=== PATIENT | male | born 1990 | race Caucasian/White ===

== ENCOUNTER 2017-06-30 18:56 | Emergency (ER) | payer OTHER ==
[~2017-06-30] VITALS: Ht 177.8 cm; Wt 149.5 kg
[2017-06-30 19:01] VITALS: Ht 177.8 cm; Wt 149.5 kg
[2017-06-30] MEDS ORDERED: KETOROLAC 30 MG INJ IM STA (21:20)
[2017-06-30] MEDS ORDERED: IBUP-1542 PO (21:21)
[2017-06-30] MEDS ORDERED: DEXAMETHASONE 10 MG/ML 1 ML INJ IM ONE (21:30)
--- NOTE | 2017-06-30 21:56 | ERD ---
ER Documentation Chief Complaint Date/Time DATE: 06/30/17 TIME: 21:54 Chief Complaint non traumatic foot pain x 2 days HPI This patient is a 26-year-old male presenting to the emergency department with complaints of left plantar foot pain radiating to his left ankle, worsening now , constant, throbbing in nature, associated with mild swelling, which onset 2 days ago. Symptoms are worse with ambulation. He denies trauma, falls, other injuries, or other symptoms currently. She states she has had this pain in the past, already diagnosed with plantar fasciitis of his left foot, and has had negative x-rays of his left foot and left ankle. ROS All systems reviewed and are negative except as per history of present illness. Medications Home Meds Active Scripts Ibuprofen* (Motrin*) 600 Mg Tab, 600 MG PO Q6, #30 TAB Prov:MITALI SÁNCHEZ PA-C 06/30/17 Allergies Allergies: Coded Allergies: No Known Allergy (Unverified , 06/30/17) PMhx/Soc History of Surgery: No Anesthesia Reaction: No Hx Neurological Disorder: No Hx Respiratory Disorders: No Hx Cardiac Disorders: No Hx Psychiatric Problems: No Hx Miscellaneous Medical Probl: No Hx Alcohol Use: No Hx Substance Use: No Hx Tobacco Use: No Smoking Status: Never smoker Physical Exam Vitals Vital Signs Date Time Temp Pulse Resp B/P Pulse Ox O2 Delivery O2 Flow Rate FiO2 06/30/17 19:01 97.8 70 20 157/95 99 Physical Exam Const: Morbidly obese habitus. Well-appearing, in no acute distress. Head: Atraumatic Eyes: Normal Conjunctiva ENT: Normal External Ears, Nose and Mouth. Skin: No petechiae or rashes Ext: There is tenderness to palpation of the plantar surface of the left foot. No edema, erythema, lymphatic streaking, or other findings on extremities. Full range of motion of the left ankle. Neur: Awake and alert Psych: Normal Mood and Affect Results 24 hrs Current Medications Medications (Trade) Dose Ordered Sig/Flo Route PRN Reason Start Time Stop Time Status Last Admin Dose Admin Dexamethasone (Decadron) 10 mg ONCE ONCE IM 06/30/17 21:30 06/30/17 21:31 DC 06/30/17 21:26 Ketorolac Tromethamine (Toradol) 30 mg ONCE STAT IM 06/30/17 21:20 06/30/17 21:21 DC 06/30/17 21:26 Procedures/MDM 26-year-old male presenting to the emergency department with complaints of left foot and left ankle pain. History and physical examination is consistent with plantar fasciitis. Patient was previously diagnosed with plantar fasciitis and he has had negative x-rays of his left foot and left ankle. I do not feel that repeat imaging was required at this time since there is no new trauma or injuries reported. The patient was requesting a "cortisone shot" in the department, so I gave him IM Decadron and IM Toradol. He was feeling improved prior to discharge. He was given a prescription for ibuprofen. Strict ER return precautions were discussed. The patient is to follow-up with his primary care physician in the next 1-2 days. Departure Diagnosis: Primary Impression: Foot pain Laterality: left Qualified Code: M79.672 - Left foot pain Condition: Fair Patient Instructions: What Is Plantar Fasciitis? Referrals: [facility] YOU HAVE RECEIVED A MEDICAL SCREENING EXAM AND THE RESULTS INDICATE THAT YOU DO NOT HAVE A CONDITION THAT REQUIRES URGENT TREATMENT IN THE EMERGENCY DEPARTMENT. FURTHER EVALUATION AND TREATMENT OF YOUR CONDITION CAN WAIT UNTIL YOU ARE SEEN IN YOUR DOCTORS OFFICE WITHIN THE NEXT 1-2 DAYS. IT IS YOUR RESPONSIBILITY TO MAKE AN APPOINTMENT FOR FOLOW-UP CARE. IF YOU HAVE A PRIMARY DOCTOR --you should call your primary doctor and schedule an appointment IF YOU DO NOT HAVE A PRIMARY DOCTOR YOU CAN CALL OUR PHYSICIAN REFERRAL HOTLINE AT IF YOU CAN NOT AFFORD TO SEE A PHYSICIAN YOU CAN CHOSE FROM THE FOLLOWING [facility] [address] [address] [address] [facility] [address] [facility] [address] [facility]. [facility] [address] [facility] [address] [facility]. [facility]. [address] Additional Instructions: Follow up with your PCP within the next 1-3 days for a repeat evaluation. If you require a referral to a specialist, your Primary Care Provider may be able to provide this for you. In most patient cases, a referral is not required. If you have further questions regarding this matter, please ask your Primary Care Provider. Return the the emergency department immediately if symptoms worsen or change. If you have any questions regarding medications, ask your pharmacist or us before you leave. If any adverse reactions, occur while taking your medications, discontinue the treatment and return to the emergency department immediately. If any new or worsening symptoms, uncontrolled fevers, or other unexplained symptoms occur, return to the emergency department immediately. Take your medications as directed, and complete the entire course of treatment. MITALI SÁNCHEZ PA-C Jun 30, 2017 21:56
== END 2017-06-30 22:03 | disposition home or self-care (01) ==
LOC: FTE 18:56
DX: M79.672 Pain in left foot (principal)
CPT/HCPCS: 96372; J1100; J1885; Z7502